=== PATIENT | female | born 1940 | race Caucasian/White ===

== ENCOUNTER 2022-10-05 10:17 | Inpatient (IN) | payer MEDICARE ==
[2022-10-04 12:17] VITALS: BMI 22.1
[2022-10-05] MEDS ORDERED: Fentanyl 100 MCG/2 ML VIAL ONE (12:11)
[2022-10-05] MEDS ORDERED: Bupivacaine PF 0.5% 30 ML VIAL ONE (12:31)
[2022-10-05] MEDS ORDERED: Ondansetron PF 4 MG/2 ML Vial ONE (12:40)
[2022-10-05] MEDS ORDERED: PROPOFOL 200 MG/20 ML VIAL ONE (12:40)
[2022-10-05] MEDS ORDERED: Dexamethasone 20 MG/5 ML VIAL ONE (12:40)
[2022-10-05] MEDS ORDERED: CEFAZOLIN 2 GM VIAL ONE ×2 (12:47→16:19)
[2022-10-05] MEDS ORDERED: Sodium Chloride 0.9% 100 ML ONE ×2 (12:47→16:19)
[2022-10-05] MEDS ORDERED: Promethazine HCl 25 MG/ML VIAL IVPB PRN (14:25)
[2022-10-05] MEDS ORDERED: Promethazine HCl 25 MG/ML VIAL IM PRN (14:25)
[2022-10-05] MEDS ORDERED: Ondansetron HCl/PF 4 MG/2 ML Vial IVP PRN (14:25)
[2022-10-05] MEDS ORDERED: Communication Order-Pharmacy FS SCH (14:30)
[2022-10-05] MEDS: Acetaminophen/Codeine 30-300mg Tablet PO PRN (21:54)
[2022-10-05] MEDS: CEFAZOLIN 2 GM in Sodium Chloride 0.9% 100 ML IVPB SCH (21:55)
[2022-10-06] MEDS: CEFAZOLIN 2 GM in Sodium Chloride 0.9% 100 ML IVPB SCH (05:57)
[2022-10-06] MEDS: Acetaminophen/Codeine 30-300mg Tablet PO PRN ×2 (10:23→21:12)
[2022-10-06] MEDS: Lisinopril 20 MG TAB PO SCH (10:23)
[2022-10-06] MEDS: Estradiol 1 MG TAB PO SCH (10:24)
[2022-10-07] MEDS: Estradiol 1 MG TAB PO SCH (10:19)
[2022-10-07] MEDS: Lisinopril 20 MG TAB PO SCH (10:20)
[2022-10-07] MEDS: Acetaminophen/Codeine 30-300mg Tablet PO PRN ×2 (10:21→20:12)
[2022-10-07 14:11] LABS: SARS-CoV-2 NAA Rapid Test DETECTED (NotDetected)
[2022-10-08] MEDS: Lisinopril 20 MG TAB PO SCH (10:00)
[2022-10-08] MEDS: Estradiol 1 MG TAB PO SCH (10:00)
[2022-10-08] MEDS: Acetaminophen/Codeine 30-300mg Tablet PO PRN ×3 (10:04→21:33)
[2022-10-09] MEDS: Estradiol 1 MG TAB PO SCH (09:09)
[2022-10-09] MEDS: Lisinopril 20 MG TAB PO SCH (09:09)
[2022-10-09] MEDS: Acetaminophen/Codeine 30-300mg Tablet PO PRN ×2 (09:12→13:05)
[2022-10-10] MEDS: Estradiol 1 MG TAB PO SCH (09:38)
[2022-10-10] MEDS: Lisinopril 20 MG TAB PO SCH (09:39)
[2022-10-10] MEDS: Acetaminophen/Codeine 30-300mg Tablet PO PRN ×3 (09:41→22:15)
[2022-10-10 16:28] LABS: Bacteria/HPF 3+ HPF (None Seen); Bilirubin Negative (Negative); Blood, Urine 1+ (Negative); CAUTI Indications for Culture Pelvic or flank pain; Clarity Turbid (Clear); Glucose, Urine (Dipstick) Normal (Negative); Ketone, Urine Negative (Negative); Leukocyte 500 Leu/uL (Negative); Nitrite Negative (Negative); Protein, Urine (Dipstick) Negative (Neg-Trace); Specific Gravity, Urine 1.014 (1.002-1.036); Squamous Epithelial 0-3 HPF (0-3); WBC/HPF 21-50 HPF (0-3); pH, Urine 6.5 (5.0-9.0)
[2022-10-10 16:31] LABS: Urine Culture Reflex Yes Yes
[2022-10-10] MEDS: cefTRIAXone\\ROCEPHIN 1 GM in Sodium Chloride 0.9% 100 ML IVPB SCH (21:31)
[2022-10-10] MEDS ORDERED: Acetaminophen 325 MG TAB PO PRN (23:31)
[2022-10-10] MEDS ORDERED: Ondansetron PF 4 MG/2 ML Vial IVP PRN (23:31)
[2022-10-10] MEDS ORDERED: Ondansetron ODT 4 MG TAB PO PRN (23:31)
[2022-10-10] MEDS ORDERED: GUAIFENESIN SF SOLN 200 MG/10 ML UDCUP PO PRN (23:33)
[2022-10-10] MEDS ORDERED: Benzonatate 100 MG CAP PO PRN (23:33)
[2022-10-10] MEDS ORDERED: Albuterol 200 PUFF (6.7GM INHALER) INH PRN (23:37)
[2022-10-10] MEDS ORDERED: Acetaminophen 650 MG Suppository PR PRN (23:37)
[2022-10-11 07:29] LABS: ALT (SGPT) 51 U/L (8-55); AST (SGOT) 85 U/L (5-34); Albumin 2.6 g/dL (3.4-4.8); Alkaline Phosphatase 157 U/L (40-110); Anion Gap 12 mmol/L (10-20); BUN (Urea Nitrogen) 15 mg/dL (9.8-20.1); Bilirubin, Total 0.9 mg/dL (0.2-1.2); Calc. Creatinine Clearance 58 mL/min (70-130); Calcium 8.5 mg/dL (7.8-10.44); Carbon Dioxide 21 mmol/L (23-31); Chloride 105 mmol/L (98-107); Estimated GFR 88; Globulin 3.1 g/dL (2.4-3.5); Glucose 96 mg/dL (83-110); Potassium 4.4 mmol/L (3.5-5.1); Protein, Total 5.7 g/dL (5.8-8.1); Sodium 134 mmol/L (136-145)
[2022-10-11 08:22] LABS: #Eosinphils 0.3 thou/uL (0.0-0.7); #Lymphocytes 1.6 thou/uL (1.20-3.40); #Monocytes 0.9 thou/uL (0.11-0.59); #Neutrophils 5.5 thou/uL (1.40-6.50); %Basophils 0.2 % (0.0-1.0); %Eosinophils 3.5 % (0.0-10.0); %Lymphocytes 19.4 % (21.0-51.0); %Monocytes 10.4 % (0.0-10.0); %Neutrophils 66.4 % (42.0-75.0); Hemoglobin 11.5 g/dL (12.0-16.0); MDiff Complete? YES; Macrocytosis SLIGHT = 6-15 cells (100X) (0-5/hpf); Mean Corpuscular HGB CONC 32.3 g/dL (32.0-36.0); Mean Corpuscular Hemoglobin 34.5 pg (27.0-31.0); Platelet Count 268 10x3/uL (130-400); RBC Distribution Width 11.4 % (11.5-14.5); Red Blood Cell (RBC) Count 3.35 mill/uL (4.20-5.40); White Blood Cell (WBC) Count 8.2 10x3/uL (4.8-10.8)
[2022-10-11] MEDS: Lisinopril 20 MG TAB PO SCH (09:14)
[2022-10-11] MEDS: Acetaminophen/Codeine 30-300mg Tablet PO PRN ×2 (09:15→22:00)
[2022-10-11] MEDS: Estradiol 1 MG TAB PO SCH (09:15)
[2022-10-11] MEDS: cefTRIAXone\\ROCEPHIN 1 GM in Sodium Chloride 0.9% 100 ML IVPB SCH (21:49)
[2022-10-11] MEDS: Senokot S 8.6-50 MG TAB PO SCH (21:49)
[2022-10-12] MEDS: Estradiol 1 MG TAB PO SCH (10:14)
[2022-10-12] MEDS: Lisinopril 20 MG TAB PO SCH (10:14)
[2022-10-12] MEDS: Polyethylene Glycol 3350 17 GM Packet PO SCH (10:14)
[2022-10-12] MEDS: Senokot S 8.6-50 MG TAB PO SCH ×2 (10:14→21:29)
[2022-10-12] MEDS: Acetaminophen/Codeine 30-300mg Tablet PO PRN ×3 (10:18→21:28)
[2022-10-12] MEDS ORDERED: Mag-Al Plus 1200 MG/1200 MG/120 MG/30 ML UDCUP PO PRN (10:38)
[2022-10-12] MEDS: Ciprofloxacin 500 MG TAB PO SCH (21:28)
[2022-10-13] MEDS: Ciprofloxacin 500 MG TAB PO SCH (05:52)
[2022-10-13] MEDS: Lisinopril 20 MG TAB PO SCH (08:00)
[2022-10-13] MEDS: Senokot S 8.6-50 MG TAB PO SCH (08:00)
[2022-10-13] MEDS: Polyethylene Glycol 3350 17 GM Packet PO SCH (08:00)
[2022-10-13] MEDS: Estradiol 1 MG TAB PO SCH (08:00)
[2022-10-13 08:22] VITALS: TEMP 97.7
[2022-10-13 13:03] VITALS: BP 100/59
== END 2022-10-13 12:35 | DRG 492 ==
LOC: SDC 10:17 → SURG B 14:28 → OBSVTOIN 10-08 11:22
PROVIDERS: ADMIT Orthopaedic Surgery; ATTEND Orthopaedic Surgery
PROC: 0QSJ04Z Reposition Right Fibula with Internal Fixation Device, Open Approach (ICD-10-PCS; principal; 2022-10-05)
PROC: 0QSG04Z Reposition Right Tibia with Internal Fixation Device, Open Approach (ICD-10-PCS; 2022-10-05)
PROC: 8E0ZXY6 Isolation (ICD-10-PCS; 2022-10-07)
DX: S82.841A Displaced bimalleolar fracture of right lower leg, initial encounter for closed fracture (principal); U07.1 COVID-19; N30.00 Acute cystitis without hematuria; I10 Essential (primary) hypertension; Z79.899 Other long term (current) drug therapy; Z90.49 Acquired absence of other specified parts of digestive tract; Z98.42 Cataract extraction status, left eye; Z98.41 Cataract extraction status, right eye
CPT/HCPCS: 36415; 71045; 80053; 81001; 85025; 87086; 87186; 96374; 96376; C1713; G0378; J0696; J1100; J2405; J2704; J3010; J3490; S0020; U0002

== ENCOUNTER 2022-10-18 01:49 | Inpatient (IN) | payer MEDICARE ==
[2022-10-18] MEDS ORDERED: cefTRIAXone\\ROCEPHIN 1 GM VIAL ONE (02:29)
[2022-10-18 02:37] LABS: ALT (SGPT) 116 U/L (8-55); AST (SGOT) 245 U/L (5-34); Albumin 2.6 g/dL (3.4-4.8); Alkaline Phosphatase 437 U/L (40-110); Anion Gap 13 mmol/L (10-20); BUN (Urea Nitrogen) 14 mg/dL (9.8-20.1); Bilirubin, Total 3.7 mg/dL (0.2-1.2); Calc. Creatinine Clearance 0 mL/min (70-130); Calcium 8.6 mg/dL (7.8-10.44); Carbon Dioxide 20 mmol/L (23-31); Chloride 102 mmol/L (98-107); Estimated GFR 88; Globulin 3.7 g/dL (2.4-3.5); Glucose 112 mg/dL (83-110); Potassium 4.6 mmol/L (3.5-5.1); Protein, Total 6.3 g/dL (5.8-8.1); Sodium 130 mmol/L (136-145)
[2022-10-18 03:17] LABS: Bacteria/HPF None Seen HPF (None Seen); Bilirubin Negative (Negative); Blood, Urine 2+ (Negative); Clarity Turbid (Clear); Glucose, Urine (Dipstick) Normal (Negative); Ketone, Urine Negative (Negative); Leukocyte 25 Leu/uL (Negative); Nitrite Negative (Negative); Protein, Urine (Dipstick) 10 mg/dL (Neg-Trace); RBC/HPF 21-50 HPF (0-3); Specific Gravity, Urine 1.017 (1.002-1.036); Urobilinogen Normal mg/dL (Less than 2)
[2022-10-18 03:21] LABS: #Eosinphils 0.2 thou/uL (0.0-0.7); #Lymphocytes 2.4 thou/uL (1.20-3.40); #Monocytes 1.8 thou/uL (0.11-0.59); #Neutrophils 11.8 thou/uL (1.40-6.50); %Basophils 0.1 % (0.0-1.0); %Monocytes 10.9 % (0.0-10.0); %Neutrophils 72.9 % (42.0-75.0); Hemoglobin 11.9 g/dL (12.0-16.0); Mean Corpuscular HGB CONC 32.2 g/dL (32.0-36.0); Mean Platelet Volume 7.9 fL (7.4-10.4); Platelet Count 274 10x3/uL (130-400); RBC Distribution Width 11.6 % (11.5-14.5); Red Blood Cell (RBC) Count 3.51 mill/uL (4.20-5.40); White Blood Cell (WBC) Count 16.2 10x3/uL (4.8-10.8)
[2022-10-18] MEDS ORDERED: Acetaminophen 325 MG TAB PO PRN (04:33)
[2022-10-18] MEDS ORDERED: Acetaminophen 650 MG Suppository PR PRN (04:33)
[2022-10-18] MEDS ORDERED: Vancomycin 1.5 GRAM/300 ML BAG IVPB SCH (05:30)
[2022-10-18] MEDS ORDERED: VANCOMYCIN 1.25 GM/250 ML BAG 1.25 GM in Premix Bag 1 BAG IVPB SCH (06:00)
[2022-10-18] MEDS: Sodium Chloride 0.9% 1,000 ML IV SCH ×3 (06:28→22:03)
[2022-10-18] MEDS ORDERED: Piperacillin/Tazobactam 3.375 GM in Sodium Chloride 0.9% 100 ML IVPB SCH ×2 (06:30→12:00)
[2022-10-18] MEDS ORDERED: Benzonatate 100 MG CAP PO PRN (06:50)
[2022-10-18] MEDS ORDERED: Piperacillin/Tazobactam 3.375 GM VIAL ONE (08:54)
[2022-10-18] MEDS: Cholecalciferol (Vitamin D3) 400 UNITS TAB PO SCH (08:58)
[2022-10-18] MEDS: Zinc Sulfate 220 MG CAP PO SCH (08:59)
[2022-10-18] MEDS: Ascorbic Acid 500 mg Chewable Tablet PO SCH (09:04)
[2022-10-18 15:57] VITALS: BMI 22.2
[2022-10-18] MEDS: Piperacillin/Tazobactam 3.375 GM in Sodium Chloride 0.9% 100 ML IVPB SCH (17:11)
[2022-10-18] MEDS: Ondansetron ODT 4 MG TAB PO PRN (17:52)
[2022-10-18] MEDS ORDERED: Vancomycin HCl 750 MG in Sodium Chloride 0.9% 250 ML 250 ML IVPB SCH (18:00)
[2022-10-18] MEDS ORDERED: Sodium Chloride 0.9% 500 ML IV SCH (20:15)
[2022-10-18 21:21] LABS: Magnesium 1.8 mg/dL (1.6-2.6); Phosphorus 2.6 mg/dL (2.3-4.7)
[2022-10-18] MEDS: Vancomycin HCl 750 MG in Sodium Chloride 0.9% 250 ML 250 ML IVPB SCH (22:01)
[2022-10-19] MEDS: Piperacillin/Tazobactam 3.375 GM in Sodium Chloride 0.9% 100 ML IVPB SCH ×4 (01:25→17:45)
[2022-10-19] MEDS ORDERED: cefTRIAXone\\ROCEPHIN 1 GM in Sodium Chloride 0.9% 100 ML IVPB SCH (02:00)
[2022-10-19 05:52] LABS: #Eosinphils 0.1 thou/uL (0.0-0.7); #Lymphocytes 1.5 thou/uL (1.20-3.40); #Monocytes 1.7 thou/uL (0.11-0.59); #Neutrophils 11.5 thou/uL (1.40-6.50); %Eosinophils 0.6 % (0.0-10.0); %Lymphocytes 9.9 % (21.0-51.0); %Monocytes 11.5 % (0.0-10.0); %Neutrophils 77.9 % (42.0-75.0); Hemoglobin 10.1 g/dL (12.0-16.0); Mean Corpuscular HGB CONC 32.3 g/dL (32.0-36.0); Mean Corpuscular Hemoglobin 34.1 pg (27.0-31.0); Mean Platelet Volume 7.4 fL (7.4-10.4); Platelet Count 289 10x3/uL (130-400); RBC Distribution Width 11.6 % (11.5-14.5); Red Blood Cell (RBC) Count 2.97 mill/uL (4.20-5.40); White Blood Cell (WBC) Count 14.7 10x3/uL (4.8-10.8)
[2022-10-19 06:22] LABS: ALT (SGPT) 58 U/L (8-55); AST (SGOT) 66 U/L (5-34); Albumin 2.2 g/dL (3.4-4.8); Alkaline Phosphatase 299 U/L (40-110); Bilirubin, Direct 0.8 mg/dL (0.1-0.3); Bilirubin, Total 1.7 mg/dL (0.2-1.2); Protein, Total 5.2 g/dL (5.8-8.1)
[2022-10-19 06:30] LABS: Anion Gap 12 mmol/L (10-20); BUN (Urea Nitrogen) 13 mg/dL (9.8-20.1); Calc. Creatinine Clearance 60 mL/min (70-130); Carbon Dioxide 20 mmol/L (23-31); Chloride 108 mmol/L (98-107); Estimated GFR 88; Glucose 87 mg/dL (83-110); Sodium 136 mmol/L (136-145)
[2022-10-19] MEDS ORDERED: Iopamidol 370 76% 100 ML VIAL ONE (08:42)
[2022-10-19] MEDS: Sodium Chloride 0.9% 1,000 ML IV SCH ×3 (09:16→22:50)
[2022-10-19] MEDS: Polyethylene Glycol 3350 17 GM Packet PO SCH (09:17)
[2022-10-19] MEDS: Ascorbic Acid 500 mg Chewable Tablet PO SCH (09:17)
[2022-10-19] MEDS: Cholecalciferol (Vitamin D3) 400 UNITS TAB PO SCH (09:17)
[2022-10-19] MEDS: Vancomycin HCl 750 MG in Sodium Chloride 0.9% 250 ML 250 ML IVPB SCH ×6 (10:07→16:41)
[2022-10-19] MEDS: Zinc Sulfate 220 MG CAP PO SCH (10:08)
[2022-10-19] MEDS ORDERED: Iopamidol 30 ML ONE ×2 (11:47→13:11)
[2022-10-19] MEDS ORDERED: Indomethacin 50 MG SUPP ONE (11:48)
[2022-10-19] MEDS ORDERED: Fentanyl 100 MCG/2 ML VIAL ONE (12:26)
[2022-10-19] MEDS ORDERED: NEOSTIGMINE 3 MG/3 ML SYR 3 MG/3 ML SYRINGE ONE (12:36)
[2022-10-19] MEDS ORDERED: Lidocaine 1% PF 5 ML VIAL ONE (12:36)
[2022-10-19] MEDS ORDERED: Dexamethasone 20 MG/5 ML VIAL ONE (12:36)
[2022-10-19] MEDS ORDERED: Glycopyrrolate 0.2 MG/ML 5 ML SYRINGE ONE (12:36)
[2022-10-19] MEDS ORDERED: Rocuronium Bromide 10 MG/ML (10ML VIAL) ONE (12:36)
[2022-10-19] MEDS ORDERED: Ondansetron PF 4 MG/2 ML Vial ONE (12:36)
[2022-10-19] MEDS ORDERED: PROPOFOL 200 MG/20 ML VIAL ONE (12:36)
[2022-10-20] MEDS: Piperacillin/Tazobactam 3.375 GM in Sodium Chloride 0.9% 100 ML IVPB SCH ×3 (01:04→17:56)
[2022-10-20] MEDS: Vancomycin HCl 750 MG in Sodium Chloride 0.9% 250 ML 250 ML IVPB SCH ×2 (06:09→16:32)
[2022-10-20 06:21] LABS: ALT (SGPT) 35 U/L (8-55); AST (SGOT) 34 U/L (5-34); Albumin 2.1 g/dL (3.4-4.8); Alkaline Phosphatase 225 U/L (40-110); Anion Gap 13 mmol/L (10-20); BUN (Urea Nitrogen) 20 mg/dL (9.8-20.1); Bilirubin, Total 0.9 mg/dL (0.2-1.2); Calc. Creatinine Clearance 55 mL/min (70-130); Calcium 7.7 mg/dL (7.8-10.44); Carbon Dioxide 16 mmol/L (23-31); Chloride 112 mmol/L (98-107); Estimated GFR 79; Globulin 2.6 g/dL (2.4-3.5); Glucose 109 mg/dL (83-110); Lipase 23 U/L (8-78); Potassium 4.7 mmol/L (3.5-5.1); Protein, Total 4.7 g/dL (5.8-8.1); Sodium 136 mmol/L (136-145)
[2022-10-20 06:24] LABS: #Monocytes 1.6 thou/uL (0.11-0.59); #Neutrophils 12.6 thou/uL (1.40-6.50); %Basophils 0.1 % (0.0-1.0); %Eosinophils 0.3 % (0.0-10.0); %Lymphocytes 6.3 % (21.0-51.0); %Monocytes 10.5 % (0.0-10.0); %Neutrophils 82.8 % (42.0-75.0); Hemoglobin 10.4 g/dL (12.0-16.0); Mean Corpuscular HGB CONC 31.9 g/dL (32.0-36.0); Mean Corpuscular Hemoglobin 33.7 pg (27.0-31.0); Mean Platelet Volume 8.1 fL (7.4-10.4); Platelet Count 173 10x3/uL (130-400); RBC Distribution Width 11.5 % (11.5-14.5); Red Blood Cell (RBC) Count 3.09 mill/uL (4.20-5.40); White Blood Cell (WBC) Count 15.2 10x3/uL (4.8-10.8)
[2022-10-20] MEDS: Zinc Sulfate 220 MG CAP PO SCH (09:03)
[2022-10-20] MEDS: Ascorbic Acid 500 mg Chewable Tablet PO SCH (09:03)
[2022-10-20] MEDS: Polyethylene Glycol 3350 17 GM Packet PO SCH (09:04)
[2022-10-20] MEDS: Cholecalciferol (Vitamin D3) 400 UNITS TAB PO SCH (09:04)
[2022-10-20] MEDS: Sodium Chloride 0.9% 1,000 ML IV SCH ×3 (09:21→21:34)
[2022-10-20] MEDS ORDERED: Lisinopril 20 MG TAB PO SCH ×2 (09:37→10:00)
[2022-10-20] MEDS ORDERED: Non-Formulary Item 1 EACH (Tamoxifen Citrate [Tamoxifen Citrate] 20 MG Tablet) PO SCH (09:37)
[2022-10-20] MEDS ORDERED: Acetaminophen/Codeine 30-300mg Tablet PO PRN (09:38)
[2022-10-20] MEDS ORDERED: Lidocaine 1% (PF) 30 ML VIAL ONE (15:53)
[2022-10-20] MEDS ORDERED: Lidocaine 1% (PF) 30 ML VIAL FS SCH (16:00)
[2022-10-20] MEDS ORDERED: Lidocaine 1% PF 5 ML VIAL FS SCH (16:00)
[2022-10-20 19:45] LABS: Pleural Fluid, Protein 2.4 g/dL
[2022-10-20 20:05] LABS: RBC Count-Automated (BF) 115 /cu.mm; WBC/Nucleated-Auto (BF) 5695 /cu.mm
[2022-10-20 20:15] LABS: BF Color Yellow; Body Fluid Source Thoracentesis Fluid; Clarity Hazy (Clear); Tube # EDTA
[2022-10-20 20:21] LABS: BF Segmented Neutrophils 69 %; Cell Count Non Hematic 25 %; Lymphocytes 6 %
[2022-10-21] MEDS: Piperacillin/Tazobactam 3.375 GM in Sodium Chloride 0.9% 100 ML IVPB SCH ×3 (01:11→17:35)
[2022-10-21] MEDS: Sodium Chloride 0.9% 1,000 ML IV SCH ×2 (05:17→16:18)
[2022-10-21] MEDS: Vancomycin HCl 750 MG in Sodium Chloride 0.9% 250 ML 250 ML IVPB SCH ×2 (05:18→16:18)
[2022-10-21] MEDS ORDERED: Lisinopril 20 MG TAB PO SCH (09:00)
[2022-10-21] MEDS: Polyethylene Glycol 3350 17 GM Packet PO SCH (09:18)
[2022-10-21] MEDS: Ascorbic Acid 500 mg Chewable Tablet PO SCH (09:19)
[2022-10-21] MEDS: Tamoxifen 10 MG TAB PO SCH (09:19)
[2022-10-21] MEDS: Cholecalciferol (Vitamin D3) 400 UNITS TAB PO SCH (09:20)
[2022-10-21] MEDS: Zinc Sulfate 220 MG CAP PO SCH (09:20)
[2022-10-21] MEDS ORDERED: Sodium Chloride 0.9% 1,000 ML IV SCH (12:54)
[2022-10-21 16:31] LABS: Vancomycin, Trough 17.3 ug/mL
[2022-10-22] MEDS: Piperacillin/Tazobactam 3.375 GM in Sodium Chloride 0.9% 100 ML IVPB SCH ×3 (00:53→18:12)
[2022-10-22] MEDS: Vancomycin HCl 750 MG in Sodium Chloride 0.9% 250 ML 250 ML IVPB SCH ×2 (05:28→16:45)
[2022-10-22 08:07] LABS: #Eosinphils 0.3 thou/uL (0.0-0.7); #Lymphocytes 1.3 thou/uL (1.20-3.40); #Monocytes 1.1 thou/uL (0.11-0.59); #Neutrophils 7.2 thou/uL (1.40-6.50); %Basophils 0.2 % (0.0-1.0); %Eosinophils 2.8 % (0.0-10.0); %Lymphocytes 12.9 % (21.0-51.0); %Monocytes 11.1 % (0.0-10.0); Mean Corpuscular HGB CONC 32.2 g/dL (32.0-36.0); Mean Corpuscular Hemoglobin 34.2 pg (27.0-31.0); Mean Platelet Volume 6.6 fL (7.4-10.4); Platelet Count 360 10x3/uL (130-400); RBC Distribution Width 11.9 % (11.5-14.5); Red Blood Cell (RBC) Count 2.62 mill/uL (4.20-5.40); White Blood Cell (WBC) Count 9.9 10x3/uL (4.8-10.8)
[2022-10-22 08:28] LABS: Anion Gap 7 mmol/L (10-20); BUN (Urea Nitrogen) 16 mg/dL (9.8-20.1); Calc. Creatinine Clearance 59 mL/min (70-130); Calcium 7.6 mg/dL (7.8-10.44); Carbon Dioxide 21 mmol/L (23-31); Chloride 115 mmol/L (98-107); Estimated GFR 87; Glucose 90 mg/dL (83-110); Sodium 139 mmol/L (136-145)
[2022-10-22] MEDS: Tamoxifen 10 MG TAB PO SCH (08:49)
[2022-10-22] MEDS: Ascorbic Acid 500 mg Chewable Tablet PO SCH (08:49)
[2022-10-22] MEDS: Polyethylene Glycol 3350 17 GM Packet PO SCH (08:49)
[2022-10-22] MEDS: Sodium Chloride 0.9% 1,000 ML IV SCH (08:49)
[2022-10-22] MEDS: Cholecalciferol (Vitamin D3) 400 UNITS TAB PO SCH (08:49)
[2022-10-22] MEDS: Zinc Sulfate 220 MG CAP PO SCH (08:50)
[2022-10-22] MEDS: Lisinopril 10 MG TAB PO SCH (08:53)
[2022-10-22] MEDS: Ondansetron PF 4 MG/2 ML Vial IVP PRN ×2 (09:56→16:48)
[2022-10-22] MEDS ORDERED: Lidocaine 1% MPF 2 ML VIAL ONE (12:20)
[2022-10-22] MEDS ORDERED: Fentanyl 250 MCG/5 ML VIAL ONE (12:39)
[2022-10-22] MEDS ORDERED: Phenylephrine 10 MG/ML VIAL ONE (12:39)
[2022-10-22] MEDS ORDERED: Dexamethasone 20 MG/5 ML VIAL ONE (13:17)
[2022-10-22] MEDS ORDERED: Esmolol 100 MG/10 ML VIAL ONE (13:17)
[2022-10-22] MEDS ORDERED: Ondansetron PF 4 MG/2 ML Vial ONE (13:17)
[2022-10-22] MEDS ORDERED: PROPOFOL 200 MG/20 ML VIAL ONE (13:17)
[2022-10-22] MEDS ORDERED: Lidocaine 1% PF 5 ML VIAL ONE (13:17)
[2022-10-22] MEDS ORDERED: Rocuronium Bromide 10 MG/ML (10ML VIAL) ONE (13:17)
[2022-10-22] MEDS ORDERED: Bupivacaine/Epinephrine 0.25% 30 ML VIAL ONE (14:30)
[2022-10-22] MEDS ORDERED: Fentanyl 100 MCG/2 ML VIAL SLOW IVP PRN (14:43)
[2022-10-22] MEDS ORDERED: Fentanyl 100 MCG/2 ML VIAL ONE (15:17)
[2022-10-22] MEDS: HYDROcodone/Acetaminophen 5/325 mg Tablet PO PRN ×2 (16:45→20:24)
[2022-10-23] MEDS: Sodium Chloride 0.9% 1,000 ML IV SCH (01:16)
[2022-10-23] MEDS: Piperacillin/Tazobactam 3.375 GM in Sodium Chloride 0.9% 100 ML IVPB SCH ×3 (01:16→17:30)
[2022-10-23] MEDS: Vancomycin HCl 750 MG in Sodium Chloride 0.9% 250 ML 250 ML IVPB SCH (05:21)
[2022-10-23 05:26] LABS: #Eosinphils 0.1 thou/uL (0.0-0.7); #Lymphocytes 1.4 thou/uL (1.20-3.40); #Monocytes 1.3 thou/uL (0.11-0.59); #Neutrophils 10.4 thou/uL (1.40-6.50); %Eosinophils 0.5 % (0.0-10.0); %Lymphocytes 10.8 % (21.0-51.0); %Monocytes 9.8 % (0.0-10.0); Mean Platelet Volume 6.6 fL (7.4-10.4); Platelet Count 395 10x3/uL (130-400); Red Blood Cell (RBC) Count 2.65 mill/uL (4.20-5.40); White Blood Cell (WBC) Count 13.1 10x3/uL (4.8-10.8)
[2022-10-23 05:44] LABS: Anion Gap 6 mmol/L (10-20); BUN (Urea Nitrogen) 16 mg/dL (9.8-20.1); Calc. Creatinine Clearance 58 mL/min (70-130); Calcium 7.5 mg/dL (7.8-10.44); Carbon Dioxide 22 mmol/L (23-31); Chloride 116 mmol/L (98-107); Estimated GFR 84; Glucose 134 mg/dL (83-110); Potassium 4.4 mmol/L (3.5-5.1); Sodium 140 mmol/L (136-145); Vancomycin, Trough 20.6 ug/mL
[2022-10-23] MEDS: HYDROcodone/Acetaminophen 5/325 mg Tablet PO PRN ×3 (08:41→20:16)
[2022-10-23] MEDS: Polyethylene Glycol 3350 17 GM Packet PO SCH (08:45)
[2022-10-23] MEDS: Lisinopril 10 MG TAB PO SCH (08:46)
[2022-10-23] MEDS: Ascorbic Acid 500 mg Chewable Tablet PO SCH (08:46)
[2022-10-23] MEDS: Zinc Sulfate 220 MG CAP PO SCH (08:47)
[2022-10-23] MEDS: Cholecalciferol (Vitamin D3) 400 UNITS TAB PO SCH (08:47)
[2022-10-23] MEDS: Tamoxifen 10 MG TAB PO SCH (08:47)
[2022-10-23] MEDS: Ondansetron PF 4 MG/2 ML Vial IVP PRN (10:12)
[2022-10-24] MEDS: Piperacillin/Tazobactam 3.375 GM in Sodium Chloride 0.9% 100 ML IVPB SCH ×3 (01:17→17:23)
[2022-10-24 05:44] LABS: #Eosinphils 0.7 thou/uL (0.0-0.7); #Lymphocytes 1.5 thou/uL (1.20-3.40); #Monocytes 1.7 thou/uL (0.11-0.59); #Neutrophils 10.9 thou/uL (1.40-6.50); %Basophils 0.1 % (0.0-1.0); %Eosinophils 4.5 % (0.0-10.0); %Lymphocytes 10.1 % (21.0-51.0); %Monocytes 11.4 % (0.0-10.0); %Neutrophils 73.9 % (42.0-75.0); Hemoglobin 9.2 g/dL (12.0-16.0); Mean Corpuscular HGB CONC 30.6 g/dL (32.0-36.0); Mean Corpuscular Hemoglobin 33.1 pg (27.0-31.0); Mean Platelet Volume 6.9 fL (7.4-10.4); Platelet Count 401 10x3/uL (130-400); RBC Distribution Width 12.4 % (11.5-14.5); Red Blood Cell (RBC) Count 2.77 mill/uL (4.20-5.40); White Blood Cell (WBC) Count 14.7 10x3/uL (4.8-10.8)
[2022-10-24 06:20] LABS: Anion Gap 8 mmol/L (10-20); BUN (Urea Nitrogen) 15 mg/dL (9.8-20.1); Calc. Creatinine Clearance 60 mL/min (70-130); Calcium 7.8 mg/dL (7.8-10.44); Carbon Dioxide 21 mmol/L (23-31); Chloride 112 mmol/L (98-107); Estimated GFR 88; Glucose 105 mg/dL (83-110); Potassium 4.4 mmol/L (3.5-5.1); Sodium 137 mmol/L (136-145)
[2022-10-24] MEDS: HYDROcodone/Acetaminophen 5/325 mg Tablet PO PRN ×3 (09:24→20:22)
[2022-10-24] MEDS: Tamoxifen 10 MG TAB PO SCH (09:25)
[2022-10-24] MEDS: Lisinopril 10 MG TAB PO SCH (09:25)
[2022-10-24] MEDS: Zinc Sulfate 220 MG CAP PO SCH (09:26)
[2022-10-24] MEDS: Polyethylene Glycol 3350 17 GM Packet PO SCH (09:26)
[2022-10-24] MEDS: Cholecalciferol (Vitamin D3) 400 UNITS TAB PO SCH (09:26)
[2022-10-25] MEDS: Piperacillin/Tazobactam 3.375 GM in Sodium Chloride 0.9% 100 ML IVPB SCH ×3 (01:06→16:28)
[2022-10-25 05:05] LABS: #Eosinphils 0.5 thou/uL (0.0-0.7); #Lymphocytes 1.6 thou/uL (1.20-3.40); #Monocytes 1.4 thou/uL (0.11-0.59); #Neutrophils 9.8 thou/uL (1.40-6.50); %Basophils 0.1 % (0.0-1.0); %Eosinophils 3.9 % (0.0-10.0); %Lymphocytes 11.7 % (21.0-51.0); %Monocytes 10.5 % (0.0-10.0); %Neutrophils 73.8 % (42.0-75.0); Hemoglobin 9.2 g/dL (12.0-16.0); Mean Corpuscular HGB CONC 30.3 g/dL (32.0-36.0); Mean Corpuscular Hemoglobin 32.7 pg (27.0-31.0); Mean Platelet Volume 7.1 fL (7.4-10.4); Platelet Count 358 10x3/uL (130-400); RBC Distribution Width 12.3 % (11.5-14.5); White Blood Cell (WBC) Count 13.3 10x3/uL (4.8-10.8)
[2022-10-25 05:20] LABS: Vancomycin, Trough 7.1 ug/mL
[2022-10-25 06:26] LABS: Anion Gap 9 mmol/L (10-20); BUN (Urea Nitrogen) 12 mg/dL (9.8-20.1); Calc. Creatinine Clearance 67 mL/min (70-130); Calcium 7.9 mg/dL (7.8-10.44); Carbon Dioxide 23 mmol/L (23-31); Chloride 109 mmol/L (98-107); Estimated GFR 90; Glucose 97 mg/dL (83-110); Potassium 4.4 mmol/L (3.5-5.1); Sodium 137 mmol/L (136-145)
[2022-10-25] MEDS: Tamoxifen 10 MG TAB PO SCH (08:20)
[2022-10-25] MEDS: Cholecalciferol (Vitamin D3) 400 UNITS TAB PO SCH (08:20)
[2022-10-25] MEDS: Lisinopril 10 MG TAB PO SCH (08:21)
[2022-10-25] MEDS: Zinc Sulfate 220 MG CAP PO SCH (08:21)
[2022-10-25] MEDS: Polyethylene Glycol 3350 17 GM Packet PO SCH (08:21)
[2022-10-25] MEDS: HYDROcodone/Acetaminophen 5/325 mg Tablet PO PRN ×2 (10:13→14:12)
[2022-10-25] MEDS: Amoxicillin/Potassium Clav 875 MG TAB PO SCH (21:30)
[2022-10-26 04:12] LABS: Methylmalonic Acid 243 nmol/L (0-378)
[2022-10-26 05:35] LABS: #Eosinphils 0.5 thou/uL (0.0-0.7); #Lymphocytes 1.7 thou/uL (1.20-3.40); #Monocytes 1.2 thou/uL (0.11-0.59); #Neutrophils 8.2 thou/uL (1.40-6.50); %Basophils 0.1 % (0.0-1.0); %Eosinophils 4.6 % (0.0-10.0); %Lymphocytes 14.6 % (21.0-51.0); %Monocytes 9.9 % (0.0-10.0); %Neutrophils 70.7 % (42.0-75.0); Hemoglobin 9.5 g/dL (12.0-16.0); Mean Corpuscular Hemoglobin 32.8 pg (27.0-31.0); Mean Platelet Volume 7.3 fL (7.4-10.4); Platelet Count 399 10x3/uL (130-400); RBC Distribution Width 12.4 % (11.5-14.5); Red Blood Cell (RBC) Count 2.89 mill/uL (4.20-5.40); White Blood Cell (WBC) Count 11.6 10x3/uL (4.8-10.8)
[2022-10-26 05:49] LABS: ALT (SGPT) 13 U/L (8-55); AST (SGOT) 21 U/L (5-34); Albumin 1.9 g/dL (3.4-4.8); Alkaline Phosphatase 129 U/L (40-110); Anion Gap 8 mmol/L (10-20); BUN (Urea Nitrogen) 10 mg/dL (9.8-20.1); Bilirubin, Total 0.5 mg/dL (0.2-1.2); CRP (Inflammatory) 2.15 mg/dL (= or < 0.5); Calc. Creatinine Clearance 63 mL/min (70-130); Calcium 7.9 mg/dL (7.8-10.44); Carbon Dioxide 25 mmol/L (23-31); Chloride 107 mmol/L (98-107); Estimated GFR 89; Globulin 2.9 g/dL (2.4-3.5); Glucose 98 mg/dL (83-110); Potassium 4.3 mmol/L (3.5-5.1); Protein, Total 4.8 g/dL (5.8-8.1); Sodium 136 mmol/L (136-145)
[2022-10-26] MEDS: Cholecalciferol (Vitamin D3) 400 UNITS TAB PO SCH (08:08)
[2022-10-26] MEDS: HYDROcodone/Acetaminophen 5/325 mg Tablet PO PRN ×2 (08:09→16:42)
[2022-10-26] MEDS: Zinc Sulfate 220 MG CAP PO SCH (08:09)
[2022-10-26] MEDS: Lisinopril 10 MG TAB PO SCH (08:09)
[2022-10-26] MEDS: Amoxicillin/Potassium Clav 875 MG TAB PO SCH ×2 (08:09→20:05)
[2022-10-26] MEDS: Tamoxifen 10 MG TAB PO SCH (08:09)
[2022-10-26] MEDS: Polyethylene Glycol 3350 17 GM Packet PO SCH (08:10)
[2022-10-26] MEDS: Ondansetron ODT 4 MG TAB PO PRN (09:46)
[2022-10-26 16:14] LABS: Fungus Stain Final report (.)
[2022-10-27 05:34] LABS: #Eosinphils 0.5 thou/uL (0.0-0.7); #Lymphocytes 1.9 thou/uL (1.20-3.40); #Monocytes 1.3 thou/uL (0.11-0.59); #Neutrophils 7.9 thou/uL (1.40-6.50); %Basophils 0.3 % (0.0-1.0); %Eosinophils 4.3 % (0.0-10.0); %Monocytes 11.4 % (0.0-10.0); Hemoglobin 9.5 g/dL (12.0-16.0); Mean Corpuscular HGB CONC 31.2 g/dL (32.0-36.0); Mean Corpuscular Hemoglobin 33.8 pg (27.0-31.0); Platelet Count 366 10x3/uL (130-400); RBC Distribution Width 12.6 % (11.5-14.5); Red Blood Cell (RBC) Count 2.81 mill/uL (4.20-5.40); White Blood Cell (WBC) Count 11.6 10x3/uL (4.8-10.8)
[2022-10-27 05:49] LABS: Anion Gap 8 mmol/L (10-20); BUN (Urea Nitrogen) 14 mg/dL (9.8-20.1); Calc. Creatinine Clearance 60 mL/min (70-130); Calcium 8.2 mg/dL (7.8-10.44); Carbon Dioxide 25 mmol/L (23-31); Chloride 107 mmol/L (98-107); Estimated GFR 88; Glucose 107 mg/dL (83-110); Potassium 4.4 mmol/L (3.5-5.1); Sodium 136 mmol/L (136-145)
[2022-10-27] MEDS: Cholecalciferol (Vitamin D3) 400 UNITS TAB PO SCH (08:48)
[2022-10-27] MEDS: Amoxicillin/Potassium Clav 875 MG TAB PO SCH ×2 (08:49→20:55)
[2022-10-27] MEDS: Lisinopril 10 MG TAB PO SCH (08:49)
[2022-10-27] MEDS: Tamoxifen 10 MG TAB PO SCH (08:49)
[2022-10-27] MEDS: Zinc Sulfate 220 MG CAP PO SCH (08:49)
[2022-10-27] MEDS: Polyethylene Glycol 3350 17 GM Packet PO SCH (08:51)
[2022-10-27] MEDS: Ondansetron ODT 4 MG TAB PO PRN (08:57)
[2022-10-27] MEDS: HYDROcodone/Acetaminophen 5/325 mg Tablet PO PRN (12:35)
[2022-10-27] MEDS: Apixaban 2.5 MG TAB PO SCH (20:55)
[2022-10-27] MEDS ORDERED: Apixaban 5 MG TAB PO SCH (21:00)
[2022-10-28 06:34] LABS: #Eosinphils 0.4 thou/uL (0.0-0.7); #Lymphocytes 1.8 thou/uL (1.20-3.40); #Monocytes 1.4 thou/uL (0.11-0.59); #Neutrophils 9.2 thou/uL (1.40-6.50); %Basophils 0.1 % (0.0-1.0); %Eosinophils 2.9 % (0.0-10.0); %Lymphocytes 14.2 % (21.0-51.0); %Monocytes 10.8 % (0.0-10.0); Hemoglobin 9.1 g/dL (12.0-16.0); Mean Corpuscular HGB CONC 31.8 g/dL (32.0-36.0); Mean Corpuscular Hemoglobin 33.3 pg (27.0-31.0); Mean Platelet Volume 7.3 fL (7.4-10.4); Platelet Count 371 10x3/uL (130-400); RBC Distribution Width 12.9 % (11.5-14.5); Red Blood Cell (RBC) Count 2.74 mill/uL (4.20-5.40); White Blood Cell (WBC) Count 12.8 10x3/uL (4.8-10.8)
[2022-10-28 07:00] LABS: Anion Gap 5 mmol/L (10-20); BUN (Urea Nitrogen) 13 mg/dL (9.8-20.1); Calc. Creatinine Clearance 56 mL/min (70-130); Calcium 8.4 mg/dL (7.8-10.44); Carbon Dioxide 29 mmol/L (23-31); Chloride 107 mmol/L (98-107); Estimated GFR 82; Glucose 99 mg/dL (83-110); Potassium 4.4 mmol/L (3.5-5.1); Sodium 137 mmol/L (136-145)
[2022-10-28] MEDS: Cholecalciferol (Vitamin D3) 400 UNITS TAB PO SCH (08:41)
[2022-10-28] MEDS: Amoxicillin/Potassium Clav 875 MG TAB PO SCH (08:41)
[2022-10-28] MEDS: Tamoxifen 10 MG TAB PO SCH (08:41)
[2022-10-28] MEDS: Polyethylene Glycol 3350 17 GM Packet PO SCH (08:41)
[2022-10-28] MEDS: Zinc Sulfate 220 MG CAP PO SCH (08:41)
[2022-10-28] MEDS: Lisinopril 10 MG TAB PO SCH (08:41)
[2022-10-28] MEDS: Apixaban 2.5 MG TAB PO SCH (08:41)
[2022-10-28] MEDS: Ondansetron ODT 4 MG TAB PO PRN (09:30)
[2022-10-28 11:54] VITALS: BP 107/52; TEMP 99.1
== END 2022-10-28 14:00 | DRG 853 ==
LOC: ERS 01:49 → ERHOLD 04:10 → NEURO 14:23 → OBSVTOIN 10-19 09:51
PROVIDERS: ADMIT Student in an Organized Health Care Education/Training Program; ATTEND Internal Medicine
PROC: 3E03329 Introduction of Other Anti-infective into Peripheral Vein, Percutaneous Approach (ICD-10-PCS; 2022-10-19)
PROC: 0F7C8ZZ Dilation of Ampulla of Vater, Via Natural or Artificial Opening Endoscopic (ICD-10-PCS; 2022-10-19)
PROC: 0BNG4ZZ Release Left Upper Lung Lobe, Percutaneous Endoscopic Approach (ICD-10-PCS; principal; 2022-10-20)
PROC: 0BNJ4ZZ Release Left Lower Lung Lobe, Percutaneous Endoscopic Approach (ICD-10-PCS; 2022-10-20)
PROC: 0W9B40Z Drainage of Left Pleural Cavity with Drainage Device, Percutaneous Endoscopic Approach (ICD-10-PCS; 2022-10-20)
PROC: 0W9B3ZZ Drainage of Left Pleural Cavity, Percutaneous Approach (ICD-10-PCS; 2022-10-20)
PROC: 4A043B0 Measurement of Venous Pressure, Central, Percutaneous Approach (ICD-10-PCS; 2022-10-20)
DX: A41.9 Sepsis, unspecified organism (principal); J12.82 Pneumonia due to coronavirus disease 2019; K83.1 Obstruction of bile duct; U07.1 COVID-19; J86.9 Pyothorax without fistula; J15.9 Unspecified bacterial pneumonia; J90 Pleural effusion, not elsewhere classified; E87.20 Acidosis, unspecified; B37.49 Other urogenital candidiasis; I10 Essential (primary) hypertension; K83.8 Other specified diseases of biliary tract; Z79.51 Long term (current) use of inhaled steroids; Z79.899 Other long term (current) drug therapy; Z90.49 Acquired absence of other specified parts of digestive tract; S82.841D Displaced bimalleolar fracture of right lower leg, subsequent encounter for closed fracture with routine healing; I48.91 Unspecified atrial fibrillation
CPT/HCPCS: 29515; 36415; 51701; 71045; 71260; 74181; 74330; 76705; 80048; 80053; 80076; 80202; 81003; 81015; 82150; 82607; 82945; 83605; 83615; 83690; 83735; 83921; 83986; 84100; 84157; 85025; 85060; 86140; 86850; 86900; 86901; 87040; 87070; 87086; 87116; 87205; 87206; 88112; 88305; 89051; 93005; 93010; 96374; G0378; J0696; J1100; J1650; J2370; J2405; J2543; J2704; J3010; J3370; J3490; J7030; J7050; Q0162; Q9967

== ENCOUNTER 2022-11-30 12:40 | Outpatient (CLI) | payer MEDICARE | END 2022-11-30 12:41 | disposition home or self-care (01) | LOC: BICRAD 12:40 | PROVIDERS: ATTEND Thoracic Surgery (Cardiothoracic Vascular Surgery) | DX: J86.9 Pyothorax without fistula (principal) | CPT/HCPCS: 71046 ==